=== PATIENT | female | born 1975 | race Hispanic/Latino ===

== ENCOUNTER → 2017-09-26 | Outpatient (CLI) | payer OTHER ==
[~2017-09-26] MED LIST: ALBUTEROL2.5 MG/3 M IH; ALDOMET250 MG PO; AMLODIPINE BESYL5 MG PO; ASPIR-TRIN325 MG PO; CLARITIN10 MG PO; ENDOCET 5-3251 EACH PO; Feosol PO; LORTAB 5-325 M1 EACH PO; METHYLDOPA250 MG PO; METOPROLOL SUCC25 MG PO; Micronor,Nor-Q-D,Err PO; Motrin PO; ONDANSETRON ODT4 MG PO; PHENTERMINE H37.5 MG PO; PHENTERMINE HCL15 MG PO; PHENTERMINE HCL30 MG PO; PREDNISONE20 MG PO; PRENATAL VITAM1 EAC3 PO; PROTONIX40 MG PO; PROVENTIL HFA6.7 GM IH; TOPROL XL50 MG PO; ZITHROMAX250 MG PO; ZOFRAN ODT8 MG PO
== END | disposition home or self-care (01) ==
LOC: CDC 08:25
DX: Z01.810 Encounter for preprocedural cardiovascular examination (principal); M67.472 Ganglion, left ankle and foot; I10 Essential (primary) hypertension; R94.31 Abnormal electrocardiogram [ECG] [EKG]
CPT/HCPCS: 93000